=== PATIENT | male | born 1965 | race Caucasian/White ===

== ENCOUNTER 2016-07-09 17:49 | Emergency (ER) | payer OTHER ==
[~2016-07-09] VITALS: Ht 170.2 cm; Wt 81.6 kg
--- NOTE | 2016-07-09 18:05 | ED HAND/WRIST INJURY COMPLAINT ---
History of Present Illness General Chief Complaint: Major Burn/Smoke Inhalation Stated Complaint: BURN TO RIGHT HAND AT NOONTIME, WORK RELATED Source: patient, family, old records Exam Limitations: no limitations Vital Signs & Intake/Output Vital Signs & Intake/Output Vital Signs Date Time Temp Pulse Resp B/P B/P Pulse O2 O2 Flow FiO2 Mean Ox Delivery Rate 07/09 1752 97.7 62 18 207/88 98 Room Air Allergies Coded Allergies: NO KNOWN ALLERGIES (12/30/12) Triage Note: PT TO TRIAGE WITH C/O BURN TO TOP OF LEFT HAND WITH HOT GREASE AT WORK 5HR MOUNTER CLARINETS. DRESSING IN PLACE, ICE PACK PROVIDED. BP 207/88 IN TRIAGE. Triage Nurses Notes Reviewed? yes HPI: Mr Machado is a 51-year-old gentleman with past medical history of hypertension presented to the emergency department on 07/09/2016 complaining of left sided dorsal hand pain. Patient was working this afternoon at [employer] in the Kitchen and had an accident. He had some hot oil spill on the medial aspect of his left dosrum. He subsequently dressed it up himself and continued to work. He got home this evening and continued to experience pain and discomfort forcing him to come to the ED. At the moment, the patient describes the pain at a 10/10. Located on the left dorsum. He currently has an Ice Pack on his hand for symptomatic relief. His blood pressure is elevated, he does not take any anti hypertensives, and states he takes herbal supplements for his elevated pressures. He denies any fever, chills, nausea or vomiting. (BREA PEREZ MD) Reconcile Medications Oxycodone HCl/Acetaminophen (Percocet 5-325 MG Tablet) 5 MG-325 MG TABLET 1 TAB PO BID Hand Pain (MONTEZ JACKSON MD) Past History Travel History Traveled to [place] past 21 day No Medical History Cardiovascular: hypertension Psychosocial History What is your primary language Maori Tobacco Use: Never used (BREA PEREZ MD) Medical History Any Pertinent Medical History? see below for history Surgical History Surgical History: non-contributory Psychosocial History ETOH Use: occasional use Illicit Drug Use: denies illicit drug use Family History Hx Contributory? No (MONTEZ JACKSON MD) Review of Systems Review of Systems Constitutional: Reports: see HPI. (ANA MD,HANIF) Review of Systems EENTM: Reports: no symptoms. Respiratory: Reports: no symptoms. Cardiovascular: Reports: no symptoms. GI: Reports: no symptoms. Genitourinary: Reports: no symptoms. Musculoskeletal: Reports: see HPI. Skin: Reports: see HPI. Neurological/Psychological: Reports: no symptoms. Immunologic/Allergic: Reports: no symptoms. (RENETTA SMITH,MONTEZ Valentine) Physical Exam Physical Exam General Appearance: well developed/nourished, no apparent distress, alert, awake , anxious Head: atraumatic, normal appearance Hand Left: normal inspection, normal range of motion, tender (Medial Dorsal Aspect. ), Eccymotic Patch 4 cm X 2 cm. Medial Wrist. Second degree burn present on dorsal aspect of hand. 3 blisters present. Hand Right: normal inspection, normal range of motion (ANA SMITH,BREA) Physical Exam Eyes: Bilateral: PERRL, EOMI. Neck: normal inspection, supple Cardiovascular/Respiratory: normal breath sounds, normal peripheral pulses, regular rate/rhythm Neurologic/Tendon: normal sensation, normal motor functions, normal tendon functions (RENETTA SMITH,MONTEZ Valentine) Progress Differential Diagnosis: cellulitis, contusion, compartment syndrome, sprain, Burn Injury (ANA SMITH,BREA) Plan of Care: Current Medications Sig/Eliud Start time Last Medication Dose Stop Time Status Admin Tetanus/Diphtheria 0.5 ML ONCE ONE 07/09 1844 AC Toxoids Adsorbed 07/09 1845 (Decavac) Departure Departure Disposition: HOME OR SELF CARE Condition: Stable Clinical Impression Primary Impression: Burn injury Secondary Impressions: Burn of second degree of back of left hand, initial encounter, Hypertension Referrals: SANTO SMITH,JANE HOOKS MD,ELYSSA Fried UNKNOWN (PCP/Family) Additional Instructions: Please follow up with your PCP in seven days. Inform your PCP of this visit to to the ED. Should you be interested in a new primary care physician we have provided you a referral. Please follow up with Plastic Surgeon, we have provided you with a referral. If your hand pain worsens over the next 24-48 hours or experience any loss of sensation or movement abnormalities or notice significant sloughing of the skin ,come back to the emergency department for further workup. In addition to the above if you fee: fever, chills, nausea, vomiting, loss of vision or experience any syncopal episodes please come back to the emergency department. Departure Forms: [employer] Employee Industrial Accident General Discharge Information Prescriptions: Current Visit Scripts Oxycodone HCl/Acetaminophen (Percocet 5-325 MG Tablet) 1 TAB PO BID #10 TAB (ANA SMITH,BREA) Resident Co-Sign Statement Statement: ED Attending supervision documentation- [X] I saw and evaluated the patient. I have also reviewed all the pertinent lab results and diagnostic results. I agree with the findings and the plan of care as documented in the Resident's documentation. [X] I have reviewed the ED Record and agree with the Resident's documentation. [] Additions or exceptions (if any) to the Resident's note and plan are summarized below: [Have personally seen and examined this patient. Patient spilled hot grease on his hand while at work. Patient put burn ointment on it and then wrapped it up and finished his shift. Patient comes in for evaluation. Patient is complaining of 8 out of 10 burning throbbing pain to the back of his hand. There is no radiation. The pain increases with movement. Patient is unsure when his last tetanus shot was. There is a superficial burn to the dorsal aspect of his hand. There is no palmar burn. Patient will follow-up with plastic surgery.] (RENETTA SMITH,MONTEZ Valenitne)
[2016-07-09] MEDS ORDERED: PERCOCET 5-3251 EACH PO (18:37)
[2016-07-09 19:00] VITALS: BP 176/78
== END 2016-07-09 19:00 ==
LOC: ERH 17:49
DX: T23.202A Burn of second degree of left hand, unspecified site, initial encounter (principal); I10 Essential (primary) hypertension; X10.2XXA Contact with fats and cooking oils, initial encounter; Y92.511 Restaurant or cafe as the place of occurrence of the external cause; Y93.G1 Activity, food preparation and clean up
CPT/HCPCS: 90471; 90714; 96372; J1885